=== PATIENT | male | born 1980 | race Caucasian/White ===

== ENCOUNTER 2021-04-06 22:46 | Emergency (ER) | payer OTHER ==
[~2021-04-06] VITALS: Ht 195.6 cm; Wt 127.0 kg
[2021-04-06 22:47] VITALS: BP 160/99
--- NOTE | 2021-04-06 22:47 | NUR ---
INITIAL PT CONTACT. PT PRESENTS TO ED C/O DOG BITE TO LEFT LOWER LEG. WORK RELATED INJURY, PT IS [facility], WENT INTO A HOUSE TO HELP WITH A SCENE AND THERE WAS A DOG THERE THAT BIT HIS LEFT LOWER LEG. BLEEDING CONTROLLED AT THIS TIME. CALL LIGHT AND BELONGINGS WITHIN REACH. NO ADDITIONAL NEEDS AT THIS TIME. ERP AT BEDSIDE.
[2021-04-06] MEDS ORDERED: BACITRACIN ZINC OINT 500U/GM, 0.9 GM ONE (23:02)
[2021-04-06] MEDS ORDERED: AMOXICILLIN/CLAV 875-125MG TABLET ONE (23:19)
[2021-04-06] MEDS ORDERED: DIPH,PERTUSS(ACELL),TET VAC/PF 0.5 ML IM-VACC ONE ×2 (23:19→23:30)
[2021-04-06] MEDS ORDERED: AMOXICILLIN/CLAV 875-125MG TABLET PO ONE (23:30)
--- NOTE | 2021-04-06 23:42 | NUR ---
Patient given discharge instructions and they have confirmed that they understand the instructions. Patient ambulatory with steady gait.
== END 2021-04-07 03:09 | disposition home or self-care (01) ==
LOC: EDBD 22:46 → ED 23:50
DX: S80.872A Other superficial bite, left lower leg, initial encounter (principal); W54.0XXA Bitten by dog, initial encounter; Y93.89 Activity, other specified; Y92.009 Unspecified place in unspecified non-institutional (private) residence as the place of occurrence of the external cause; Y99.8 Other external cause status
CPT/HCPCS: 90471; 90715